=== PATIENT | male | born 1995 | race Caucasian/White ===

== ENCOUNTER 2023-08-09 11:21 | Emergency (ER) | payer MEDICAID ==
[~2023-08-09] VITALS: Ht 172.7 cm; Wt 78.5 kg
[2023-08-09 11:26] VITALS: BP 134/74; TEMP 98.8; O2SAT 100
[2023-08-09] MEDS ORDERED: LIDOCAINE 1%-EPI 1:100,000 20 ML VIAL ONE (11:39)
[2023-08-09] MEDS ORDERED: ACETAMINOPHEN ES 500 MG TABLET ONE (11:41)
[2023-08-09] MEDS ORDERED: TDAP [DIPH/PERTUSSIS/TET] 0.5 ML VIAL IM ONE (11:41)
[2023-08-09] MEDS ORDERED: CEPHALEXIN MONOHYDRATE 500 MG CAPSULE PO ONE (11:41)
[2023-08-09] MEDS: TDAP [DIPH/PERTUSSIS/TET] 0.5 ML VIAL IM ONE (11:51)
[2023-08-09] MEDS: CEPHALEXIN MONOHYDRATE 500 MG CAPSULE PO ONE (11:52)
[2023-08-09] MEDS: ACETAMINOPHEN ES 500 MG TABLET PO ONE (11:52)
[2023-08-09] MEDS ORDERED: CEPH500T PO (12:18)
== END 2023-08-09 12:24 | disposition home or self-care (01) ==
LOC: ER 11:23
DX: S61.412A Laceration without foreign body of left hand, initial encounter (principal); Z60.2 Problems related to living alone; X58.XXXA Exposure to other specified factors, initial encounter; Y93.64 Activity, baseball; Y92.89 Other specified places as the place of occurrence of the external cause; Y99.8 Other external cause status
CPT/HCPCS: 12002; 73130; 90471; 90715; 99283; J3490